=== PATIENT | female | born 1960 | race Caucasian/White ===

== ENCOUNTER 2018-01-17 13:44 | Emergency (ER) | payer BC ==
[~2018-01-17] VITALS: Ht 162.6 cm; Wt 77.0 kg
[~2018-01-17 13:44] MED LIST: NAPR500 PO; Z.0.NO CURRENT MEDS
[2018-01-17 13:58] VITALS: BP 200/111; PULSE 91; RESP 16; TEMP 98.4; O2SAT 96
--- NOTE | 2018-01-17 14:11 | PD ---
HPI Chief Complaint: Neuro Symptoms/ Deficits Time Seen by Provider: 13:49 Travel History International Travel<30 days: No Contact w/Intl Traveler<30days: No Traveled to known affect area: No History of Present Illness HPI This 57-year-old female is complaining of some numbness of her face, dizziness and weakness of her left arm. She says his symptoms been going on for couple of days. They're somewhat intermittent. Been suffering from right-sided headaches. She was diagnosed as having hypertension about a month ago and was put on lisinopril in the lisinopril and apparently was not very effective is supposed to start Norvasc today. She has had pain in her neck. She was told by her doctor that she should have a scan done and they were unable to get it done until Monday and the doctor was concerned that she might be having a stroke. She says she gets some numbness in both of her hands and has to shake her hand sometimes . PFSH Past Medical History Cardiovascular Problems: No Diabetes: No ?: Not Past Surgical History Other Surgery: Yes (SPINAL) Social History Alcohol Use: Yes (SOCIALLY) Tobacco Use: Yes (one pack per day) Substance Use: No Allergies-Medications (Allergen,Severity, Reaction): Coded Allergies: No Known Allergies (Unverified , 05/03/13) Reported Meds & Prescriptions Reported Meds & Active Scripts Active Reported Naprosyn (Naproxen) 500 Mg Tab 500 Mg PO BID No Current Meds (Miscellaneous Medication) Misc Review of Systems General / Constitutional: No: Fever, Chills Eyes: No: Diploplia HENT: Positive: Headaches Cardiovascular: No: Chest Pain or Discomfort, Palpitations Respiratory: No: Cough, Shortness of Breath Gastrointestinal: No: Nausea, Vomiting Genitourinary: No: Urgency, Frequency Musculoskeletal: No: Myalgias, Arthralgias Skin: No Rash, No Itching Neurologic: Positive: Weakness, Dizziness Hematologic/Lymphatic: No: Easy Bruising Physical Exam Narrative GENERAL: Well-developed female SKIN: Focused skin assessment warm/dry. HEAD: Atraumatic. Normocephalic. EYES: Pupils equal and round. No scleral icterus. No injection or drainage. ENT: No nasal bleeding or discharge. Mucous membranes pink and moist. NECK: Trachea midline. No JVD. CARDIOVASCULAR: Regular rate and rhythm. No murmur appreciated. RESPIRATORY: No accessory muscle use. Clear to auscultation. Breath sounds equal bilaterally. GASTROINTESTINAL: Abdomen soft, non-tender, nondistended. Hepatic and splenic margins not palpable. MUSCULOSKELETAL: No obvious deformities. No clubbing. No cyanosis. No edema. NEUROLOGICAL: Awake and alert. There appears to be some mild right facial weakness with mild flattening of the nasolabial fold. There is diminished sensation of the face and the upper chest on the right side. The abdomen and legs are not affected. There does appear to be some mild drift of the left arm. PSYCHIATRIC: Appropriate mood and affect; insight and judgment normal. Data Data Last Documented VS Vital Signs Date Time Temp Pulse Resp B/P (MAP) Pulse Ox O2 Delivery O2 Flow Rate FiO2 01/17/18 13:58 98.4 91 16 200/111 (140) 96 Orders Orders Complete Blood Count With Diff (01/17/18 14:06) Basic Metabolic Panel (Bmp) (01/17/18 14:06) Prothrombin Time / Inr (Pt) (01/17/18 14:06) Act Partial Throm Time (Ptt) (01/17/18 14:06) Mri Brain W/O Contrast (01/17/18 14:06) [facility] Medical Decision Making Medical Screen Exam Complete: Yes Emergency Medical Condition: Yes Medical Record Reviewed: Yes Differential Diagnosis Differential includes CVA, hypertension, space-occupying lesion Narrative Course Patient appears to have some facial weakness as well as diminished sensation which would not be consistent with a Brito's palsy. I have ordered an MRI further evaluation Edgard Hawthorne MD Jan 17, 2018 14:11
[2018-01-17] MEDS ORDERED: LISI-519 PO (14:37)
[2018-01-17] MEDS ORDERED: CYCL5TAB PO (14:37)
[2018-01-17] MEDS ORDERED: MULTTAB67 PO (14:37)
[2018-01-17 14:39] LABS: AUTOMATED NEUTROPHIL # 4.1 TH/MM3 (1.8-7.7); BASOPHIL # 0.1 TH/MM3 (0-0.2); BASOPHIL % 1.3 % (0.0-2.0); EOSINOPHIL # 0.3 TH/MM3 (0-0.4); EOSINOPHIL % 3.9 % (0.0-4.0); HEMATOCRIT 48.1 % (35.0-46.0); LYMPH % 32.8 % (9.0-44.0); LYMPHOCYTE # 2.5 TH/MM3 (1.0-4.8); MEAN CORPUSCULAR HEMOGLOBIN 29.2 PG (27.0-34.0); MEAN CORPUSCULAR HGB CONC 33.2 % (32.0-36.0); MEAN PLATELET VOLUME 8.5 FL (7.0-11.0); MONO % 6.9 % (0.0-8.0); MONOCYTE # 0.5 TH/MM3 (0-0.9); NEUT % 55.1 % (16.0-70.0); PLATELET COUNT 200 TH/MM3 (150-450); RED BLOOD COUNT 5.47 MIL/MM3 (4.00-5.30); RED CELL DISTRIBUTION WIDTH 14.2 % (11.6-17.2); WHITE BLOOD COUNT 7.5 TH/MM3 (4.0-11.0)
[2018-01-17 14:49] LABS: CALCIUM 9.9 MG/DL (8.5-10.1)
[2018-01-17 14:50] LABS: BICARBONATE 26.6 MEQ/L (21.0-32.0)
[2018-01-17 14:51] LABS: INTERNATIONAL NORMALIZED RATIO 0.9 RATIO; PROTHROMBIN TIME - PATIENT 9.6 SEC (9.8-11.6)
[2018-01-17 14:53] LABS: CREATININE 0.88 MG/DL (0.50-1.00)
[2018-01-17 16:17] VITALS: BP 146/78; PULSE 71; O2SAT 96
--- NOTE | 2018-01-17 16:56 | RADRPT ---
EXAM DATE/TIME: 01/17/2018 16:08 [place] COMPARISON: No previous studies available for comparison. INDICATIONS : TIA. Right facial numbness. MEDICAL HISTORY : Hypertension. SURGICAL HISTORY : Laminectomy. ENCOUNTER: Initial ACUITY: 1 day PAIN SCORE: 0/10 LOCATION: head. TECHNIQUE: Multiplanar, multisequence MRI of the brain was performed without contrast. FINDINGS: CEREBRUM: The ventricles are normal for age. No evidence of midline shift, mass lesion, hemorrhage or acute in farction. No extraaxial fluid collections are seen. The pituitary gland and suprasellar cistern are normal in configuration. WHITE MATTER: No significant signal abnormalities are seen in the white matter. POSTERIOR FOSSA: The cerebellum and brainstem are intact. The 4th ventricle is midline. The cerebellopontine angle is unremarkable. The cerebellar tonsils are normal in position. DIFFUSION IMAGING: No focal areas of restricted diffusion are seen. No evidence of acute infarction. EXTRACRANIAL: Mucosal sinus disease present in both maxillary antra. CONCLUSION: No acute intracranial findings. Austin Nation MD on January 17, 2018 at 16:52 Board Certified Radiologist. This report was verified electronically.
[2018-01-17 17:17] VITALS: BP 157/89; PULSE 74; O2SAT 96
--- NOTE | 2018-01-17 17:22 | PD ---
Physical Exam Date Seen by Provider: Jan 17, 2018 Data Data Last Documented VS Vital Signs Date Time Temp Pulse Resp B/P (MAP) Pulse Ox O2 Delivery O2 Flow Rate FiO2 01/17/18 17:18 01/17/18 17:17 74 96 01/17/18 13:58 98.4 16 Orders Orders Complete Blood Count With Diff (01/17/18 14:06) Basic Metabolic Panel (Bmp) (01/17/18 14:06) Prothrombin Time / Inr (Pt) (01/17/18 14:06) Act Partial Throm Time (Ptt) (01/17/18 14:06) Mri Brain W/O Contrast (01/17/18 14:06) Labs Laboratory Tests Test 01/17/18 14:23 White Blood Count 7.5 TH/MM3 Red Blood Count 5.47 MIL/MM3 Hemoglobin 16.0 GM/DL Hematocrit 48.1 % Mean Corpuscular Volume 88.0 FL Mean Corpuscular Hemoglobin 29.2 PG Mean Corpuscular Hemoglobin Concent 33.2 % Red Cell Distribution Width 14.2 % Platelet Count 200 TH/MM3 Mean Platelet Volume 8.5 FL Neutrophils (%) (Auto) 55.1 % Lymphocytes (%) (Auto) 32.8 % Monocytes (%) (Auto) 6.9 % Eosinophils (%) (Auto) 3.9 % Basophils (%) (Auto) 1.3 % Neutrophils # (Auto) 4.1 TH/MM3 Lymphocytes # (Auto) 2.5 TH/MM3 Monocytes # (Auto) 0.5 TH/MM3 Eosinophils # (Auto) 0.3 TH/MM3 Basophils # (Auto) 0.1 TH/MM3 CBC Comment DIFF FINAL Differential Comment Prothrombin Time 9.6 SEC Prothromb Time International Ratio 0.9 RATIO Activated Partial Thromboplast Time 27.8 SEC Blood Urea Nitrogen 18 MG/DL Creatinine 0.88 MG/DL Random Glucose 106 MG/DL Calcium Level 9.9 MG/DL Sodium Level 139 MEQ/L Potassium Level 4.5 MEQ/L Chloride Level 108 MEQ/L Carbon Dioxide Level 26.6 MEQ/L Anion Gap 4 MEQ/L Estimat Glomerular Filtration Rate 66 ML/MIN [facility] Medical Record Reviewed: Yes Supervised Visit with NAKUL: No Interpretation(s) Vital Signs Date Time Temp Pulse Resp B/P (MAP) Pulse Ox O2 Delivery O2 Flow Rate FiO2 01/17/18 16:17 71 146/78 (100) 96 01/17/18 13:58 98.4 91 16 200/111 (140) 96 Laboratory Tests Test 01/17/18 14:23 White Blood Count 7.5 TH/MM3 (4.0-11.0) Red Blood Count 5.47 MIL/MM3 (4.00-5.30) Hemoglobin 16.0 GM/DL (11.6-15.3) Hematocrit 48.1 % (35.0-46.0) Mean Corpuscular Volume 88.0 FL (80.0-100.0) Mean Corpuscular Hemoglobin 29.2 PG (27.0-34.0) Mean Corpuscular Hemoglobin Concent 33.2 % (32.0-36.0) Red Cell Distribution Width 14.2 % (11.6-17.2) Platelet Count 200 TH/MM3 (150-450) Mean Platelet Volume 8.5 FL (7.0-11.0) Neutrophils (%) (Auto) 55.1 % (16.0-70.0) Lymphocytes (%) (Auto) 32.8 % (9.0-44.0) Monocytes (%) (Auto) 6.9 % (0.0-8.0) Eosinophils (%) (Auto) 3.9 % (0.0-4.0) Basophils (%) (Auto) 1.3 % (0.0-2.0) Neutrophils # (Auto) 4.1 TH/MM3 (1.8-7.7) Lymphocytes # (Auto) 2.5 TH/MM3 (1.0-4.8) Monocytes # (Auto) 0.5 TH/MM3 (0-0.9) Eosinophils # (Auto) 0.3 TH/MM3 (0-0.4) Basophils # (Auto) 0.1 TH/MM3 (0-0.2) CBC Comment DIFF FINAL Differential Comment Prothrombin Time 9.6 SEC (9.8-11.6) Prothromb Time International Ratio 0.9 RATIO Activated Partial Thromboplast Time 27.8 SEC (24.3-30.1) Blood Urea Nitrogen 18 MG/DL (7-18) Creatinine 0.88 MG/DL (0.50-1.00) Random Glucose 106 MG/DL (74-106) Calcium Level 9.9 MG/DL (8.5-10.1) Sodium Level 139 MEQ/L (136-145) Potassium Level 4.5 MEQ/L (3.5-5.1) Chloride Level 108 MEQ/L (98-107) Carbon Dioxide Level 26.6 MEQ/L (21.0-32.0) Anion Gap 4 MEQ/L (5-15) Estimat Glomerular Filtration Rate 66 ML/MIN (>89) Last Impressions Brain MRI 01/17/181405 Signed Impressions: Service Date/Time: Wednesday, January 17, 2018 16:08 - CONCLUSION: No acute intracranial findings. Austin Nation MD Differential Diagnosis CVA, Brito's palsy, electrolyte abnormality, space-occupying lesion Narrative Course Patient was signed out to me by Dr. Bryan at change of shift, please see previous providers chart for full HPI and workup the patient. Patient pending MRI of the brain, if MRI negative, patient can be safely discharged home with follow-up with her primary care doctor. Patient is a 57-year-old female who presents the emergency room with complaints of numbness to her face as well as dizziness and weakness to her left arm. Symptoms have been ongoing for the past few days but has been intermittent in nature. Patient did follow-up with her primary care doctor about her symptoms, she was supposed to have imaging performed on Monday, patient presents the emergency room for imaging as her symptoms were concerning. Last Impressions Brain MRI 01/17/181405 Signed Impressions: Service Date/Time: Wednesday, January 17, 2018 16:08 - CONCLUSION: No acute intracranial findings. Austin Nation MD Brain MRI shows no acute intracranial findings, lab work is benign. Patient was given a copy of her lab work as well as her MRI report, patient understands need to follow-up with her primary care doctor as well as neurologist. Patient at this time is stable for discharge. Signs and symptoms of when to return to the emergency room was reviewed with patient in detail. Diagnosis Primary Impression: Dizziness Additional Impression: Numbness and tingling Patient Instructions: General Instructions Additional Instruction: Please provide patient with a copy of their lab work and studies at discharge* * Please follow up with your primary care doctor in 2-3 days Return to the ER if symptoms worsen or progress Return to the ER as needed Please follow-up with neurologist as soon as possible Med/Other Pt SpecificInfo: Prescription(s) given Disposition: 01 DISCHARGE HOME Condition: Stable Sarah Dawson DO Jan 17, 2018 17:22
== END 2018-01-17 17:33 | disposition home or self-care (01) ==
LOC: PHED 13:44
DX: R42 Dizziness and giddiness (principal); R20.0 Anesthesia of skin; R20.2 Paresthesia of skin; R29.810 Facial weakness; R51 Headache; F17.200 Nicotine dependence, unspecified, uncomplicated
CPT/HCPCS: 70551; 80048; 85025; 85610; 85730; 99284